=== PATIENT | female | born 1990 | race Caucasian/White ===

== ENCOUNTER 2019-09-27 23:46 | Emergency (ER) | payer OTHER ==
[~2019-09-27] VITALS: Ht 175.3 cm; Wt 108.9 kg
--- OUTSIDE RECORDS SUMMARY | 2019-09-27 23:48 | XMS REPORT ---
Author [facility] Address Unknown Phone Unavailable Care Team Providers Care Director Life Sales Name Role Phone MAXI PEDRO Unavailable Unavailable Payers Payer Name Policy Type Policy Number Effective Date Expiration Date Problems This patient has no known problems. Allergies, Adverse Reactions, Alerts Allergy Name Allergy Type Status Severity Reaction(s) Onset Date Inactive Date Treating Clinician Comments Penicillins DA Active SV 2019-05-30 00:00:00 MMR VACCINE DA Active OR 2019-05-30 00:00:00 Medications This patient has no known medications. Results Test Description Test Time Test Comments Text Results Atomic Results Result Comments SURGICAL SPECIMENS 2019-06-10 10:05:00 RUN DATE: 06/10/19 [facility] *LIVE* PAGE 1 RUN TIME: 1005 Specimen Inquiry RUN USER: INTERFACE PATIENT: SUSAN DE LEÓN LOC: NC.MS4 U #: [id number] AGE/SX: 29/F ROOM: [place] [id number] [facility]: Mikey Hughes II : 90 BED: 1 DIS: 06/08/19 STATUS: DIS Little TLOC: SPEC #: [id number] RECD: 06/08/19 STATUS: SOUAlecia REQ #: [id number] FRANCESCO: 06/07/[address] [facility] DR: Mkiey Hughes III, MD ENTERED: 06/08/19 SP TYPE: SURG OTHR DR: Maxi Lainez MD, Jerome S MDORDERED: PATHGM4, PATHGM5 TISSUES: A. OVARY, NOS - LEFT OVARY B. CYST,NOS - RIGHT OVARIAN CYST WALL FINAL DIAGNOSIS A. LEFT OVARY, OOPHORECTOMY: - BENIGN CYSTIC FOLLICLES (0.2 TO 0.8 CM) - NO MALIGNANCY IDENTIFIED B. RIGHT OVARIAN CYST WALL, CYSTECTOMY: - BENIGN HEMORRHAGIC CORPUS LUTEUM CYST - NO MALIGNANCY IDENTIFIED GROSS DESCRIPTION PATIENT HISTORY: Left ovarian cyst. A: Specimen labeled "left ovary". Received in formalin is a roughly oval pale yellowish-patiño left ovary measuring 3.4 x 2.5 x 2 cm. Sectioning of the ovary shows multiple cystic cavities ranging from 0.2 to 0.8 cm. Some of the cysts contain hemorrhagic material and blood and the remaining cysts contain serous fluid. A rojas yellow corpus luteum is also identified on cut surface. Sections from the entire ovary are submitted as A1-A4. B: Specimen labeled "right ovarian cyst wall". Received in formalin are two separate pieces of red to pale patiño soft tissue grossly appears to be pieces of an ovarian cyst wall. The larger piece measures 2 x 1.5 x 0.5 cm and the second piece measures 1.4 x 1 x 0.4 cm. Sectioning shows multiple cystic cavities ranging from 0.3 to 0.5 cm. Both pieces are sectioned. One of the pieces is submitted in toto as C1 and the second piece is sectioned and submitted as B2. The entire specimen is submitted. Signed SIGNATURE ON FILE Javed Rosario W 06/10/19 1005 END OF REPORT CBC W/O DIFF 2019-06-08 06:02:00 WHITE BLOOD CELL (test code=WBC) 10.9 10 3/uL 4.5-11.0 RED BLOOD CELL (test code=RBC) 4.21 10 6/uL 3.50-5.50 HEMOGLOBIN (test code=HGB) 10.9 g/dL 12.0-16.0 HEMATOCRIT (test code=HCT) 35.9 % 37.0-55.0 MEAN CELL VOLUME (test code=MCV) 85 fL 81-102 MEAN CELL HGB (test code=MCH) 25.9 pg 26.0-34.0 MEAN CELL HGB CONCENTRATION (test code=MCHC) 30.4 % 31.0-37.0 RED CELL DISTRIBUTION WIDTH (test code=RDW) 13.0 % 11.5-14.5 PLATELET COUNT (test code=PLT) 245 10 3/uL 150-400 CBC W/AUTO [id number] 10:35:00* Test Item Value Reference Range Comments WHITE BLOOD CELL (test code=WBC) 6.2 10 3/uL 4.5-11.0 RED BLOOD CELL (test code=RBC) 4.62 10 6/uL 3.50-5.50 HEMOGLOBIN (test code=HGB) 12.0 g/dL 12.0-16.0 HEMATOCRIT (test code=HCT) 39.0 % 37.0-55.0 MEAN CELL VOLUME (test code=MCV) 84 fL 81-102 MEAN CELL HGB (test code=MCH) 26.0 pg 26.0-34.0 MEAN CELL HGB CONCENTRATION (test code=MCHC) 30.8 % 31.0-37.0 RED CELL DISTRIBUTION WIDTH (test code=RDW) 13.0 % 11.5-14.5 PLATELET COUNT (test code=PLT) 250 10 3/uL 150-400 MEAN PLATELET VOLUME (test code=MPV) 9.2 fl 9.0-12.6 NEUTROPHIL % (test code=NT%) 58.2 % 33.0-76.0 IMMATURE GRANULOCYTE % (test code=IG%) 0.3 % 0.0-1.0 LYMPHOCYTE % (test code=LY%) 31.2 % 14.0-56.4 MONOCYTE % (test code=MO%) 6.2 % 0.0-12.9 EOSINOPHIL % (test code=EO%) 3.6 % 0.0-7.0 BASOPHIL % (test code=BA%) 0.5 % 0-2.0 NEUTROPHIL # (test code=NT#) 3.59 10 3/uL 1.5-7.0 IMMATURE GRANULOCYTE # (test code=IG#) 0.020 x10 3/uL 0.000-0.100 LYMPHOCYTE # (test code=LY#) 1.92 10 3/uL 1.50-4.00 MONOCYTE # (test code=MO#) 0.38 10 3/uL 0.20-0.80 EOSINOPHIL # (test code=EO#) 0.22 10 3/uL 0.0-0.5 BASOPHIL # (test code=BA#) 0.03 10 3/uL 0.0-0.1 NEEDLE EMG, 2 [id number] 21:25:00 INTRAOPERATIVE MONITORING REPORT Patient Name: Susan De León [facility] Surgery Date: 08/27/2018 Pro: S/N - [id number] Monitoring began at 07:57 and ended at 09:41 Surgeon: Donny Pedro M.D. Examining Neurologist: Cheryle Keith MD Monitoring Technologist: EVELYNE Nieto Procedure: Lumbar Laminectomy/ Foraminotomy L5-S1 Free-running EMG of the left and right Tibialis Anterior (L4-5), Gastrocnemius (L5-S2), and AbductorHallucis (S2) Description : Intraoperative neurophysiological monitoring was performed using free-running EMG of L4-S2 innervated muscle groups. A real-time connection with the examining neurologist was established and maintained throughout the operative procedure by the monitoring technologist. Free-running EMG of L4-S2 innervated muscle group was monitored continuously throughout the operative procedure with brief sporadic firing in the right gastrocnemius but no sustained neurotonic discharges seen. EMGs stable and quiet at closing. Surgeon aware of all responses during the case and at closing. Conclusion: Electromyographic recordings revealed brief periods of possible neurotonic activity arising from the right gastrocnemius, suggesting transient irritation of the corresponding nerve or nerve roots. The EMG was at baseline at the end of the study, suggestin g preservation of baseline function of the neural pathway innervating the muscle s monitored via free-running EMG. Adrianna Keith, [id number] Electronically signed by: CHERYLE KEITH MD on 9 09:25 PM [place], [facility] IN OR/30 MINUTE [id number] 08:54:00Reason for exam:->Back painFINAL REPORT Lumbar spine. CLINICAL HISTORY: Back pain. COMPARISON STUDY: X-ray dated July 18, 2011. FINDINGS: A single, lateral intraoperative radiograph of the lumbar spine is submitted for interpretation. A radiopaque marker seen projecting over the L5 spinous process. This assumes 5 lumbar type vertebral bodies. An intraoperative verbal report was given to Dr. Pedro who is in agreement. Signed: Vince Colbert MDReport Verified Date/Time: 08/27/2018 08:54:48 Reading Location: [facility] Reading Room ALYSIS W/ REFLEX URINE [id number] 18:32:00* Test Item Value Reference Range Comments COLOR (BEAKER) (test llhn=906) Yellow CLARITY (BEAKER) (test iezu=830) Clear SPECIFIC GRAVITY UA (BEAKER) (test zbxf=441) 1.020 1.001-1.035 PH UA (BEAKER) (test xjdu=370) 5.5 5.0-8.0 PROTEIN UA (BEAKER) (test glwa=893) Negative Negative GLUCOSE UA (BEAKER) (test yntl=933) Negative Negative KETONES UA (BEAKER) (test dsce=261) Negative Negative BILIRUBIN UA (BEAKER) (test elvr=891) Negative Negative BLOOD UA (BEAKER) (test nlgw=880) Negative Negative NITRITE UA (BEAKER) (test rigp=021) Negative Negative LEUKOCYTE ESTERASE UA (BEAKER) (test pmse=438) Small Negative UROBILINOGEN UA (BEAKER) (test yybo=598) 0.2 mg/dL 0.2-1.0 RBC UA (BEAKER) (test aoyq=542) 0 /HPF WBC UA (BEAKER) (test stsf=810) 0 /HPF BACTERIA (BEAKER) (test sqlu=312) Rare MUCUS (BEAKER) (test ohtj=6834) Rare SQUAMOUS EPITHELIAL (BEAKER) (test raue=855) 2 /HPF SOURCE(BEAKER) (test oqtw=5613) BASIC METABOLIC [id number] 18:29:00* Test Item Value Reference Range Comments SODIUM (BEAKER) (test xemr=466) 140 meq/L 136-145 POTASSIUM (BEAKER) (test pakf=012) 4.0 meq/L 3.5-5.1 CHLORIDE (BEAKER) (test bwbj=737) 105 meq/L 98-107 CO2 (BEAKER) (test gphi=202) 26 meq/L 22-29 BLOOD UREA NITROGEN (BEAKER) (test xozp=759) 10 mg/dL 7-21 CREATININE (BEAKER) (test dseg=705) 0.86 mg/dL 0.57-1.25 GLUCOSE RANDOM (BEAKER) (test utib=770) 79 mg/dL 70-105 CALCIUM (BEAKER) (test xcrt=385) 9.9 mg/dL 8.4-10.2 EGFR (BEAKER) (test sdjw=9991) 79 mL/min/1.73 sq m ESTIMATED GFR IS NOT ACCURATE CREATININE CLEARANCE IN PREDICTING GLOMERULAR FILTRATION RATE. ESTIMATED GFR IS NOT APPLICABLE FOR DIALYSIS PATIENTS. PT/[id number] 18:18:00* Test Item Value Reference Range Comments PROTIME (BEAKER) (test eekl=381) 13.1 seconds 11.7-14.7 INR (BEAKER) (test tgwa=078) 1.0 <=5.9 PARTIAL THROMBOPLASTIN TIME (BEAKER) (test cqdn=947) 29.9 seconds 22.5-36.0 RECOMMENDED COUMADIN/WARFARIN INR THERAPY RANGESSTANDARD DOSE: 2.0 - 3.0 Inclu maribell: PROPHYLAXIS for venous thrombosis, systemic embolization; TREATMENT for karin ous thrombosis and/or pulmonary embolus.HIGH RISK: Target INR is 2.5-3.5 for pat ients with mechanical heart valves.PROTHROMBIN TIME/[id number] 18:17:00* Test Item Value Reference Range Comments PROTIME (BEAKER) (test vsza=287) 13.1 seconds 11.7-14.7 INR (BEAKER) (test ciwh=460) 1.0 <=5.9 RECOMMENDED COUMADIN/WARFARIN INR THERAPY RANGESSTANDARD DOSE: 2.0 - 3.0 Inclu maribell: PROPHYLAXIS for venous thrombosis, systemic embolization; TREATMENT for karin ous thrombosis and/or pulmonary embolus.HIGH RISK: Target INR is 2.5-3.5 for pat ients with mechanical heart valves.CBC W/PLT COUNT & AUTO [id number] 18:11:00* Test Item Value Reference Range Comments WHITE BLOOD CELL COUNT (BEAKER) (test nvnf=937) 7.8 K/ L 3.5-10.5 RED BLOOD CELL COUNT (BEAKER) (test oqew=961) 4.71 M/ L 3.93-5.22 HEMOGLOBIN (BEAKER) (test ftid=570) 12.3 GM/DL 11.2-15.7 HEMATOCRIT (BEAKER) (test ryik=062) 40.6 % 34.1-44.9 MEAN CORPUSCULAR VOLUME (BEAKER) (test jmdf=678) 86.2 fL 79.4-94.8 MEAN CORPUSCULAR HEMOGLOBIN (BEAKER) (test mpuu=422) 26.1 pg 25.6-32.2 MEAN CORPUSCULAR HEMOGLOBIN CONC (BEAKER) (test hzlg=743) 30.3 GM/DL 32.2-35.5 RED CELL DISTRIBUTION WIDTH (BEAKER) (test vcdk=475) 13.1 % 11.7-14.4 PLATELET COUNT (BEAKER) (test fwbk=541) 279 K/CU MM 150-450 MEAN PLATELET VOLUME (BEAKER) (test nbgv=373) 9.4 fL 9.4-12.3 NUCLEATED RED BLOOD CELLS (BEAKER) (test skcf=176) 0 /100 WBC 0-0 NEUTROPHILS RELATIVE PERCENT (BEAKER) (test icmi=845) 63 % LYMPHOCYTES RELATIVE PERCENT (BEAKER) (test drze=900) 29 % MONOCYTES RELATIVE PERCENT (BEAKER) (test lrqg=239) 5 % EOSINOPHILS RELATIVE PERCENT (BEAKER) (test nocn=401) 2 % BASOPHILS RELATIVE PERCENT (BEAKER) (test rlji=563) 0 % NEUTROPHILS ABSOLUTE COUNT (BEAKER) (test uwhe=569) 4.91 K/ L 1.56-6.13 LYMPHOCYTES ABSOLUTE COUNT (BEAKER) (test sfin=992) 2.30 K/ L 1.18-3.74 MONOCYTES ABSOLUTE COUNT (BEAKER) (test xfav=203) 0.42 K/ L 0.24-0.36 EOSINOPHILS ABSOLUTE COUNT (BEAKER) (test vhvs=145) 0.13 K/ L 0.04-0.36 BASOPHILS ABSOLUTE COUNT (BEAKER) (test ftwm=300) 0.03 K/ L 0.01-0.08 IMMATURE GRANULOCYTES-RELATIVE PERCENT (BEAKER) (test yoka=4953) 0 % 0-1 RAD, CHEST, 2 [id number] 16:20:00Reason for Exam:->radiculopathyFINAL REPORT Chest, PA and lateral. History: Radiculopathy. Comparison: None available. Discussion: The cardiomediastinal silhouette and pulmonary vasculature are within normal limits. The lungs are clear without e vidence of consolidation or effusion. There are no acute osseous abnormalities. The soft tissues are unremarkable. IMPRESSION: No acute cardiopulmonary abnorm ality. Signed: Marito Proctoreport Verified Date/Time: 08/13/2018 16:20:49 Reading Location: [address] Radiology Reading Room [id number] 11:34:00 RUN DATE: 04/01/18 [facility] PAGE 1 RUN TIME: 1134 Specimen Inqui ry RUN USER: INTERFACE PATIENT: SUSAN DE LEÓN ACCT #: [id number] LOC: [facility] U #: [id number] AGE/SX: 27/F RO[facility]: Flakito Jeffery MD : 90 BED: DIS: STATUS: DEYSI RODRIGUES TLOC: SPEC #: [id number] RECD: 03/30/18 STATUS: LILIANE AGUERO #: [id number] FRANCESCO: 03/30/18-[address]: Flakito Jeffery MD ENTERED: 03/30/18 SP TYPE: PERITONEUM OTHR DR: ORDERED: GROSS PROCEDURES: GROSS (03/31/18-1113) TISSUES: 1. PERITONEUM, NOS - BS 2. OVARY, NOS - CYST CLINICAL HISTORY COLLECTION DATE: 03/30/2018 PELVIC PAIN, DYSPAREUNIA, DYSMENORR HEA COMMENT Multiple levels of tissue were examined on specimen 1, "peritoneal biopsy" and showed fibroconnective tissue with mild chronic inflam mation. No malignancy is identified. Clinical correlation is recommended. FINAL DIAGNOSIS Peritoneum, biopsy: FIBROCONNECTIVE TISSUE WITH MILD CHRONIC INFLAMMATION, see comment NEGATIVE FOR MALIGNANCY Ovarian cyst, site not otherwise specified, cystectomy: BENIGN CORPUS LUTEUM CYST WITH HEMORRHAGE NEGATIVE FOR MALIGNANCY TEDDY/sm D [id number] MACROSCOPIC The first specimen is received in formalin, labeled with the patient's name, identified as "Peritoneal BX", and consists of patiño-pink biopsy tissue measuring up 1.3 x 0.3 x 0.2 cm. The tissue is bisected and e ntirely submitted in cassette (1) for microscopic evaluation. The secon d specimen is received in formalin, labeled with the patient's name, identifie d as "Ovarian cyst", and consists of multiple patiño-pink to yellow to CONTINUED ON NEXT PAGE RUN DATE: 04/01/18 [facility] PAGE 2 RUN TIME: 1134 Specimen Inquiry RUN USER: INTERFACE SPEC #: [id number] PATIENT: SUSAN DE LEÓN #[id number] (Continued) MACROSCOPIC (Continued) brown fragments of tissue measuring 1.5 x 0.8 x 0.4 cm in aggregate. The tissue is entirely submitted in cassette (2) for microscopic evaluation. GROSS PERFO RMED AT [facility] [address] [place], [place] [address] [address] (p)[phone] MICROSCOPIC MICROSCOPIC PERFORME D AT [facility] All of the stains, including any controls performe d, stain appropriately. [address] [place] [address] (p)[phone] PERFORMING SITE Diagnosis performed a t: [facility] [address] [address] Signed SIGNATURE ON FILE Aaliyah Sharma T 04/01/18 1134 END OF REPORT
[2019-09-28] MEDS ORDERED: ONDANSETRON HCL INJ 2MG/ML 2ML 2 MG/ML VIAL IV STA (00:17)
[2019-09-28] MEDS ORDERED: FAMOTIDINE 20 MG/2 ML VIAL IV STA (00:17)
[2019-09-28] MEDS ORDERED: SODIUM CHLORIDE 0.9% 1000ML 1,000 ML IV SCH (00:30)
[2019-09-28] MEDS ORDERED: IOPAMIDOL 370 MG/ML 200 ML INFUS..BTL INJ ONE (00:42)
[2019-09-28] MEDS ORDERED: SODIUM CHLORIDE 0.9% 50ML 50 ML ONE (00:42)
[2019-09-28] MEDS ORDERED: FAMOTIDINE 20 MG/2 ML VIAL IV ONE (00:44)
[2019-09-28] MEDS ORDERED: SODIUM CHLORIDE 0.9% 1000ML 1,000 ML ONE (00:44)
[2019-09-28] MEDS ORDERED: ONDANSETRON HCL INJ 2MG/ML 2ML 2 MG/ML VIAL ONE (00:44)
--- NOTE | 2019-09-28 01:40 | Diagnostic Imaging Report ---
EXAMINATION: CT of the abdomen and pelvis with contrast. TECHNIQUE: Spiral CT images of the abdomen and pelvis were performed from the lung bases to the lesser trochanters after the intravenous administration of 100 cc Isovue-370.. Coronal and sagittal reformatted images were obtained. COMPARISON: None. CLINICAL HISTORY:Abdominal pain, bloating, nausea. Patient reports history of partial hysterectomy and left ovarian removal. DISCUSSION: ABDOMEN/PELVIS: LOWER THORAX:Lung bases are unremarkable. No pleural effusion. HEPATOBILIARY: No focal hepatic lesions. No intra-or extrahepatic biliary ductal dilation. The gallbladder is unremarkable. SPLEEN: No splenomegaly or focal splenic lesion. PANCREAS: No focal masses or ductal dilatation. ADRENALS: No adrenal nodules. KIDNEYS/URETERS: No hydronephrosis, calculi, or solid or cystic mass lesions. PELVIC ORGANS/BLADDER: The urinary bladder is unremarkable. PERITONEUM/RETROPERITONEUM: No ascites or pneumoperitoneum. LYMPH NODES: No pelvic sidewall, retroperitoneal, or mesenteric lymphadenopathy. VESSELS: Abdominal aorta, major branch vessels, and iliac arterial systems are patent. Portal vein, splenic vein, and central superior mesenteric vein are patent. GI TRACT: Large bowel shows no distension or wall thickening. Appendix is normal. No small bowel dilatation to suggest obstruction. BONES AND SOFT TISSUE: No osseous destructive lesions. Nonspecific soft tissue stranding in the subcutaneous fat overlying the lower lumbar spine. Postsurgical changes of the anterior abdominal wall. Otherwise no focal soft tissue abnormality. IMPRESSION: No acute intra-abdominal or pelvic CT abnormality. Signed by: Dr. Jose Martin Blackwell M.D. on 09/28/2019 1:37 AM
[2019-09-28] MEDS ORDERED: ZOFRAN4 MG PO (01:50)
[2019-09-28] MEDS ORDERED: PEPCID20 MG PO (01:51)
[2019-09-28] MEDS ORDERED: DICYCLOMINE HCL20 MG PO (01:53)
== END 2019-09-28 02:00 | disposition home or self-care (01) ==
LOC: FSED 23:46
DX: R10.84 Generalized abdominal pain (principal); R11.0 Nausea; K29.70 Gastritis, unspecified, without bleeding
CPT/HCPCS: 74177; 80053; 81003; 85025; 99284; J2405; J7030; Q9967